=== PATIENT | female | born 1945 | race Caucasian/White ===

== ENCOUNTER → 2017-07-19 | Outpatient (CLI) | payer BC ==
[~2017-07-19] MED LIST: AMIODARONE200 MG PO; ASPIRIN 32325 MG/TAB PO; BETAPACE 80MG80 MG PO; CALCIUM600 M2 PO; CORDARONE200 MG/TAB PO; DILTIA XT240 MG PO; FLOVENT DI50 MCG/Act IH; FLUTICAS P0.05 MG/AC NS; GLUCOSAMINE CHO1 CAP PO; LEVAQUIN 750MG750 M1 PO; MAGIMIN-FORTE250 MG PO; MAGNESIUM250 M1 PO; OMEGA 31000 MG PO; PRADAXA; PRADAXA 150MG150 MG PO; PRADAXA PO; TAZTIA XT240 MG PO; VALTREX500 MG PO; VIT C; VITAMIN C500 MG PO; VITAMIN D1000 IU PO; VITAMIN D31000 IU PO
== END ==
LOC: MC.RAD 13:47
DX: Z12.31 Encounter for screening mammogram for malignant neoplasm of breast (principal)

== ENCOUNTER → 2018-08-21 | Outpatient (CLI) | payer BC | LOC: MC.RAD 14:31 | DX: Z12.31 Encounter for screening mammogram for malignant neoplasm of breast (principal) ==

== ENCOUNTER → 2021-02-10 | Outpatient (CLI) | payer MEDICARE, BC | LOC: MC.RAD 13:00 | DX: Z12.31 Encounter for screening mammogram for malignant neoplasm of breast (principal) ==

== ENCOUNTER → 2023-09-13 | Outpatient (CLI) | payer MEDICARE, BC | LOC: MC.RAD 13:38 | DX: Z12.31 Encounter for screening mammogram for malignant neoplasm of breast (principal); N63.10 Unspecified lump in the right breast, unspecified quadrant ==

== ENCOUNTER → 2023-10-04 | Outpatient (CLI) | payer MEDICARE, BC | LOC: MC.RAD 13:41 | DX: R92.8 Other abnormal and inconclusive findings on diagnostic imaging of breast (principal) ==